=== PATIENT | male | born 1970 | race Caucasian/White ===

== ENCOUNTER 2021-04-22 12:32 | Outpatient (CLI) | payer BC, MEDICARE | END 2021-04-22 12:55 | LOC: SLEEP 12:32 | PROVIDERS: ATTEND Internal Medicine | DX: G47.10 Hypersomnia, unspecified (principal); G47.33 Obstructive sleep apnea (adult) (pediatric); E66.01 Morbid (severe) obesity due to excess calories | CPT/HCPCS: G0399 ==

== ENCOUNTER → 2021-05-06 | Outpatient (CLI) | payer BC, MEDICARE | LOC: LABNPT 08:22 | PROVIDERS: ATTEND Otolaryngology Otolaryngology/Facial Plastic Surgery | DX: G47.33 Obstructive sleep apnea (adult) (pediatric) (principal); Z20.822 Contact with and (suspected) exposure to COVID-19 | CPT/HCPCS: 87635 ==

== ENCOUNTER 2021-05-07 19:35 | Outpatient (CLI) | payer BC, MEDICARE | END 2021-05-08 06:25 | disposition home or self-care (01) | LOC: SLEEP 19:35 | PROVIDERS: ATTEND Otolaryngology Otolaryngology/Facial Plastic Surgery | DX: G47.33 Obstructive sleep apnea (adult) (pediatric) (principal); G47.31 Primary central sleep apnea; G47.36 Sleep related hypoventilation in conditions classified elsewhere | CPT/HCPCS: 95811 ==

== ENCOUNTER 2022-08-03 20:57 | Outpatient (CLI) | payer MEDICARE, BC | END 2022-08-04 06:25 | disposition home or self-care (01) | LOC: SLEEP 20:57 | PROVIDERS: ATTEND Otolaryngology Otolaryngology/Facial Plastic Surgery | DX: G47.33 Obstructive sleep apnea (adult) (pediatric) (principal); G47.10 Hypersomnia, unspecified | CPT/HCPCS: 95811 ==